=== PATIENT | female | born 1945 | race Caucasian/White ===

== ENCOUNTER → 2016-08-25 | Outpatient (CLI) | payer OTHER, MEDICARE | LOC: BHLMT 09:15 | PROVIDERS: ATTEND Internal Medicine Interventional Cardiology | DX: G45.9 Transient cerebral ischemic attack, unspecified (principal) | CPT/HCPCS: 93306-PO; 93880-PO ==

== ENCOUNTER → 2016-08-26 | Outpatient (CLI) | payer OTHER, MEDICARE | LOC: FIMAGING 15:57 | PROVIDERS: ATTEND Internal Medicine | DX: R47.01 Aphasia (principal) ==

== ENCOUNTER → 2016-09-16 | Outpatient (CLI) | payer OTHER, MEDICARE | LOC: BHFA 14:30 | PROVIDERS: ATTEND Internal Medicine Cardiovascular Disease | DX: R06.00 Dyspnea, unspecified (principal) ==

== ENCOUNTER → 2016-09-21 | Outpatient (CLI) | payer OTHER, MEDICARE | LOC: BHFA 10:30 | PROVIDERS: ATTEND Internal Medicine Cardiovascular Disease | DX: R42 Dizziness and giddiness (principal) ==

== ENCOUNTER 2016-10-20 13:11 | Day surgery (SDC) | payer OTHER, MEDICARE ==
[2016-10-20] MEDS ORDERED: NS 1,000 ML IV ONE ×2 (13:15)
[2016-10-20] MEDS ORDERED: ASPIRIN EC 325 MG TAB PO ONE ×2 (13:15→13:45)
[2016-10-20] MEDS ORDERED: MIDAZOLAM 2 MG/2 ML VIAL IVP ONE (13:15)
[2016-10-20] MEDS ORDERED: BENZOCAINE UNIT DOSE SPRAY HURRICAINE MM ONE (13:15)
[2016-10-20] MEDS ORDERED: fentaNYL 100 MCG/2 ML INJ IVP ONE (13:15)
[2016-10-20] MEDS ORDERED: DIAZEPAM 5 MG TAB PO ONE (13:15)
--- NOTE | 2016-10-20 13:41 | CPEKG ---
Heart Rate: 92 RR Interval: 652 P-R Interval: 173 QRSD Interval: 90 QT Interval: 380 QTC Interval: 471 P [place]: 49 QRS [place]: 55 T Wave [place]: 19 EKG Severity - ABNORMAL ECG - EKG Impression: SINUS RHYTHM EKG Impression: CONSIDER LEFT VENTRICULAR HYPERTROPHY EKG Impression: ST DEPRESSION, CONSIDER ISCHEMIA, ANT-LAT LDS EKG Impression: MODERATE ARTIFACT PRECLUDS ABILITY TO CLEARLY READ THIS STUDY. POSSIBLE EKG Impression: INFEROLATERAL ST/T WAVE CHANGES NOTED. Electronically Signed By: Ap Amor 21-Oct-2016 17:22:51
[2016-10-20] MEDS ORDERED: MIDAZOLAM 2 MG/2 ML VIAL ONE ×2 (13:44→14:31)
[2016-10-20] MEDS ORDERED: fentaNYL 100 MCG/2 ML INJ ONE ×2 (13:45→14:31)
[2016-10-20] MEDS ORDERED: DIAZEPAM 5 MG TAB ONE (13:45)
[2016-10-20] MEDS ORDERED: FAMOTIDINE 20 MG TAB ONE (13:45)
[2016-10-20] MEDS ORDERED: diphenhydrAMINE 25 MG CAP PO ONE (13:45)
[2016-10-20 13:53] LABS: % IMMATURE GRANULYOCYTES 0.3 % (0.0-1.1); ABSOLUTE IMMATURE GRANULOCYTES 0.02 10^3/uL (0.00-0.10); ADD DIFF? NO; ADD MORPH? NO; ADD SCAN? NO; ATYPICAL LYMPHOCYTE FLAG 10 (0-99); FRAGMENT RBC FLAG 0 (0-99); HEMATOCRIT 43.2 % (38.0-47.0); HEMOGLOBIN 14.5 g/dL (12.6-16.3); LEFT SHIFT FLG 0 (0-99); LIPEMIA HEMOLYSIS FLAG 80 (0-99); MEAN CELL HEMOGLOBIN 30.1 pg (27.9-34.1); MEAN CELL HEMOGLOBIN CONCENTR. 33.6 g/dL (32.4-36.7); MEAN CELL VOLUME 89.6 fL (81.5-99.8); MEAN PLATELET VOLUME 10.6 fL (8.7-11.7); PLATELET CLUMPS FLAG 0 (0-99); PLATELET COUNT 318 10^3/uL (150-400); RED BLOOD CELL COUNT 4.82 10^6/uL (4.18-5.33); RED CELL DISTRIBUTION WIDTH 12.7 % (11.5-15.2)
[2016-10-20 13:59] LABS: INR 0.94 (0.83-1.16); PROTIME(PATIENT) 12.5 SEC (12.0-15.0)
[2016-10-20 14:15] LABS: ANION GAP 14 mEq/L (8-16); CALCIUM 10.1 mg/dL (8.5-10.4); CARBON DIOXIDE 27 mEq/l (22-31); CHLORIDE 99 mEq/L (97-110); CHOLESTEROL 200 mg/dL (140-220); CREATININE 0.7 mg/dL (0.6-1.0); GLOMERULAR FILTRATION RATE > 60; GLUCOSE 102 mg/dL (70-100); MAGNESIUM 1.9 mg/dL (1.6-2.3); POTASSIUM 3.4 mEq/L (3.5-5.2); SODIUM 140 mEq/L (134-144); TRIGLYCERIDE 58 mg/dL (35-135); VERY LOW DENSITY LIPOPROTEINS 11 mg/dL (8-25)
[2016-10-20] MEDS ORDERED: LIDOCAINE 1% 30 ML SDV ONE (14:31)
[2016-10-20] MEDS ORDERED: IOPAMIDOL (ISOVUE 370) 100 ML BTL IV ONE (14:36)
[2016-10-20 14:42] LABS: CHOLESTEROL/HDL RATIO 1.54 RATIO (1.00-4.44); HIGH DENSITY LIPOPROTEIN 130 mg/dL (40-85); LOW DENSITY LIPOPROTEIN 59 mg/dL (80-100)
[2016-10-20 14:43] LABS: LDL/HDL RATIO 0.45 RATIO (1.00-3.22); NON-HIGH DENSITY LIPOPROTEIN 70 mg/dL (90-129)
--- NOTE | 2016-10-20 16:51 | PDDXCAT ---
Diagnostic Cath Note - . Date: 10/20/16 Alteration Worker: Donny Indication: other (Valvular Heart Disease) - Procedure Access: right groin Procedure: left heart catheterization, coronary angiography, left ventriculogram , right heart catheterization, other (Aortagram) - Materials Left Heart Cath materials: standard multipack (JL4, JR4, pigtail) Right Heart Cath size: 7F Right Heart Cath materials: PWP catheter - Findings-Left Heart Catheterization LM: Normal. LAD: Angiographically normal. LCX: Dominant; angiographically normal. RCA: Non-dominant; angiographically normal. EDP: 18 mmHg LVEF: 50%; Aortagram demonstrates normal caliber aorta with mild angiographic AR (moderate to severe by echo). Wall motion: Noormal - Findings-Right Heart Catheterization RA: 8 mmHg RV: 28/6 mmHg PA: 30/12/20 mmHg O2 sat 81.4% PAOP: 14 mmHg AO: 140/68/100 mmHg O2 sat 93.8% CO: 8.99 L/min CI: 5.11 L/min/sq mtr Complications: None Estimated blood loss: <50ml Closure method: Angioseal Assessment: 1) Low normal LV systolic function. 2) Angiographically normal coronary arteries. 3) Normal right heart pressures.
--- NOTE | 2016-10-22 15:56 | ECHO ---
[id number] + + [address] : : [facility] [address] : : [phone] + + Transesophageal Echocardiographic Report + ----+ :Name: SHEREE JAMES MStudy Date: 10/20/2016 02:28 PM : : Hospital Admission Number: [id number] Location: C: :: 1945 Gender: Female : :Age: 71 yrs Race: WH : :Reason For Study: Eval LV Fx : :History: Pre Cath, Known AI : + ----+ Left Ventricle The left ventricular ejection fraction is normal. Right Ventricle The right ventricular systolic function is normal. Atria Injection of contrast documented an interatrial shunt. The interatrial septum is intact with no evidence for an atrial septal defect. Mitral Valve There is no mitral valve stenosis. There is moderate mitral regurgitation. The MR volume by PISA from previous surface echo ERO/ R Vol .11 cm2/16ml. Tricuspid Valve There is mild tricuspid regurgitation. Aortic Valve Moderate to severe aortic regurgitation. The AI regurgitant fraction 21%. Pulmonic Valve The pulmonic valve is normal in structure and function. There is no pulmonic valvular regurgitation. Vessels Mild atherosclerotic plaque(s) in the descending aorta. Conclusion A 2D transesophageal echocardiogram with color flow Doppler was performed. The left ventricular ejection fraction is normal. Injection of contrast documented an interatrial shunt. The interatrial septum is intact with no evidence for an atrial septal defect. There is moderate mitral regurgitation. The MR volume by PISA from previous surface echo ERO/ R Vol .11 cm2/16ml Moderate to severe aortic regurgitation. The AI regurgitant fraction 21% There is mild tricuspid regurgitation. Mild atherosclerotic plaque(s) in the descending aorta. Final Reading Physician: Felicia Lester signed on 10/22/2016 03:55 PM Ordering Physician: Ham Hines Performed By: Ham Hines MD
== END 2016-10-20 19:46 | disposition home or self-care (01) ==
LOC: FCATH 13:11
PROVIDERS: ATTEND Internal Medicine Interventional Cardiology
PROC: B2111ZZ Fluoroscopy of Multiple Coronary Arteries using Low Osmolar Contrast (ICD-10-PCS; principal; 2016-10-20)
PROC: B2151ZZ Fluoroscopy of Left Heart using Low Osmolar Contrast (ICD-10-PCS; principal; 2016-10-20)
PROC: 4A023N8 Measurement of Cardiac Sampling and Pressure, Bilateral, Percutaneous Approach (ICD-10-PCS; principal; 2016-10-20)
PROC: 3E073KZ Introduction of Other Diagnostic Substance into Coronary Artery, Percutaneous Approach (ICD-10-PCS; principal; 2016-10-20)
PROC: B246ZZ4 Ultrasonography of Right and Left Heart, Transesophageal (ICD-10-PCS; principal; 2016-10-20)
DX: I08.0 Rheumatic disorders of both mitral and aortic valves (principal)
CPT/HCPCS: C1760; J1644; J2250; J3010; Q9967

== ENCOUNTER 2016-11-11 07:06 | Inpatient (IN) | payer OTHER, MEDICARE ==
[~2016-11-11 07:06] MED LIST: ADENOSINE 6 MG/2 ML VIAL ONE; ALBUMIN 5% 250 ML BOTTLE IV ONE; AMINOCAPROIC ACID 5 GM/20 ML VIAL IV ONE; AMINOCAPROIC ACID 5 GM/20 ML VIAL ONE; AMIODARONE HCL 150 MG/3 ML VIAL ONE; CALCIUM CHLORIDE 1 GM/10 ML INJ ONE; CHLORHEXIDINE GLUC HIBICLENS 118 ML BTL TP SCH; CITRATE DEXTROSE SOLN 500 ML BAG MISC ONE; CITRATE DEXTROSE SOLN 500 ML BAG ONE; DOPamine/DEXTROSE/250 ML BAG IV ONE; HEPARIN 10,000 UNIT/10 ML MDV ONE; INSULIN REGULAR HUMAN 100 UNIT in NS 100 ML IV ONE; LIDOCAINE 1% 5 ML SDV ID PRN; LIDOCAINE 2% 100 MG/5 ML SYR ONE; LIDOCAINE 2% 5 ML SDV ONE; MAGNESIUM SULFATE 1 GM/2 ML VIAL ONE; MANNITOL 25% 12.5 GM/50 ML VIAL IV ONE; MILRINONE/DEXTROSE/100 ML BAG IV ONE; MUPIROCIN 2% 22 GM OINT NS ONE; NA BICARBONATE 50 MEQ/50 ML VIAL ONE; NOREPINEPHRINE BITARTRATE 16 MG in NS 250 ML IV ONE; NS 1,000 ML IV ONE; PHENYLEPHRINE 10 MG/ML SDV ONE; PHENYLEPHRINE HCL 50 MG in NS 250 ML IV ONE; POTASSIUM Cl (KCl) 20 MEQ/50 ML BAG IV ONE; PROPOFOL 200 MG/20 ML VIAL ONE; PROTAMINE SULFATE 50 MG/5 ML VIAL IVP ONE; ROCURONIUM 100 MG/10 ML VIAL ONE; SODIUM BICARBONATE 20 MEQ, LIDOCAINE 1% 10 ML in NORMOSOL-R 1,000 ML MISC ONE; ceFAZolin 1 GM VIAL ONE; ceFAZolin 2 GM/DEXTROSE 100 ML IV ONE; methylPREDNISolone SOD SUCC 1 GM/8 ML VIAL ONE; niCARdipine/NACL 200 ML IV SCH; niCARdipine/NACL/200 ML BAG IV ONE
[2016-11-11] MEDS ORDERED: MUPIROCIN 2% 22 GM OINT ONE (08:07)
[2016-11-11] MEDS ORDERED: MINERAL OIL 10 ML VIAL TP ONE (08:13)
[2016-11-11] MEDS ORDERED: LIDOCAINE 1% 5 ML SDV ID PRN (08:21)
[2016-11-11] MEDS ORDERED: LR 1,000 ML IV ONE (08:21)
[2016-11-11] MEDS ORDERED: fentaNYL 250 MCG/5 ML INJ ONE ×2 (08:35→08:36)
[2016-11-11] MEDS ORDERED: MIDAZOLAM 2 MG/2 ML VIAL ONE ×2 (08:41→10:42)
[2016-11-11] MEDS ORDERED: fentaNYL 100 MCG/2 ML INJ ONE (10:43)
[2016-11-11] MEDS ORDERED: SUGAMMADEX SODIUM 200 MG/2 ML VIAL IVP ONE ×2 (12:32→18:05)
[2016-11-11] MEDS ORDERED: PANTOPRAZOLE SODIUM 40 MG in NS 100 ML IV ONE (12:53)
[2016-11-11] MEDS ORDERED: SODIUM CL NASAL 45 ML BTL EACHNARE PRN (12:53)
[2016-11-11] MEDS ORDERED: D50W 25 GM/50 ML SYR IVP PRN (12:53)
[2016-11-11] MEDS ORDERED: ACETAMINOPHEN 650 MG SUPP PR PRN (12:53)
[2016-11-11] MEDS ORDERED: MAGNESIUM HYDROXIDE 30 ML UDCUP PO PRN (12:53)
[2016-11-11] MEDS ORDERED: LACTULOSE 20 GM/30 ML UDCUP PO PRN (12:53)
[2016-11-11] MEDS ORDERED: BISACODYL 10 MG SUPP PR PRN (12:53)
[2016-11-11] MEDS ORDERED: MAGNESIUM SULF 2 GM/WATER 50 ML BAG IV ONE ×2 (12:53→12:55)
[2016-11-11] MEDS ORDERED: ONDANSETRON DISINTEGRATING 4 MG TAB PO PRN (12:53)
[2016-11-11] MEDS ORDERED: CEPACOL LOZENGE PO PRN (12:53)
[2016-11-11] MEDS ORDERED: ACETAMINOPHEN 325 MG TAB PO PRN (12:53)
[2016-11-11] MEDS ORDERED: fentaNYL 100 MCG/2 ML INJ IVP PRN (12:53)
[2016-11-11] MEDS ORDERED: MAGNESIUM SULF 2 GM/WATER 50 ML IV ONE (12:53)
[2016-11-11] MEDS ORDERED: MEPERIDINE 25 MG/ML SYR IVP PRN (12:53)
[2016-11-11] MEDS ORDERED: INSULIN REGULAR HUMAN 100 UNIT in NS 100 ML IV SCH (13:00)
[2016-11-11] MEDS ORDERED: NS 1,000 ML IV SCH (13:00)
--- NOTE | 2016-11-11 14:00 | CPEKG ---
Heart Rate: 114 RR Interval: 526 P-R Interval: 96 QRSD Interval: 110 QT Interval: 376 QTC Interval: 518 P [place]: 0 QRS [place]: -41 T Wave [place]: 152 EKG Severity - ABNORMAL ECG - EKG Impression: SINUS TACHYCARDIA EKG Impression: NONSPECIFIC IVCD WITH LAD Electronically Signed By: Issac Odell 12-Nov-2016 07:17:42
--- NOTE | 2016-11-11 14:21 | POSTOPPROG ---
Post Op Note Date of Operation: 11/11/16 Surgeon: Ham Rollins [employer] Operator: Augustina Anesthesiologist: Brian Anesthesia: GET(General Endotracheal) Pre-op Diagnosis: AI, MR Procedure: AVR #19 magna, MVR #27 magna, atriclip CAIN Inf/Abcess present in the surg proc area at time of surgery?: No EBL: 100-500 Drains: Other (2 blakes)
[2016-11-11] MEDS: ceFAZolin 2 GM/DEXTROSE 100 ML IV SCH ×2 (14:41→22:11)
[2016-11-11] MEDS ORDERED: epHEDrine SULFATE 10 MG/ML SYR ONE ×3 (14:54)
[2016-11-11] MEDS: POTASSIUM Cl (KCl) 50 ML IV PRN ×4 (14:58→19:55)
[2016-11-11] MEDS ORDERED: niCARdipine/NACL 200 ML IV SCH (15:00)
--- NOTE | 2016-11-11 15:18 | GOP ---
[f rep st] OPERATIVE REPORT DATE OF OPERATION: 11/11/2016 SURGEON: Ham Rollins DO [employer] MECHANIC: Miguel Jackman PA-C. ANESTHESIOLOGIST: Dr. Torres. PREOPERATIVE DIAGNOSIS: 1. Aortic insufficiency. 2. Mitral insufficiency. POSTOPERATIVE DIAGNOSIS: 1. Aortic insufficiency. 2. Mitral insufficiency. PROCEDURE PERFORMED: 1. Aortic valve replacement with a #19 Magna bioprosthesis. 2. Mitral valve chordal-sparing replacement with a #27 Magna bioprosthesis. 3. AtriClip to the left atrial appendage. 4. Closure of patent foramen ovale. FINDINGS: Patient was noted to have moderate AI with moderate to severe mitral insufficiency, and h ad become quite symptomatic. She was referred for surgical valve repair and replacement. DESCRIPTION OF PROCEDURE: She was consented for surgery, brought to the operating room, intubated, monitoring lines were placed. She was prepped and draped in sterile classical manner. Some conside ration for Mccracken-Maze IV was also part of the preoperative discussion, however, 2 separate Holters terrence led to reveal any evidence of atrial fibrillation, although she does have a history of SVT for which she carries a "pill in a pocket". After reviewing this in the department, we did not believe it warranted a Maze procedure, nor could we justify it and for that reason, none was offered. Transesophageal echo revealed multiple jets of regurgitation, more consistent with severe on my revi ew with an enlarged left atrium. The AI was moderate. After a time-out, sternotomy was performed. She was heparinized and cannulated with bicaval cannulas, cardiopulmonary bypass was begun. A card ioplegic arrest was attained with antegrade cardioplegia, retrograde cardioplegia, topical hypotherm ia and systemic cooling. Initially, we opened the left atrium through the right superior pulmonary vein. We identified the P FO and that was oversewn with a continuous running 4-0 Prolene. We then proceeded with inspecting t he valve, it appeared to be somewhat fibrotic and had fibrosed chords, particularly the posterolater al papillary muscle was fibrosed. There did not appear to be any chordal elongation. I placed alex loplasty sutures and felt that adequate catholic of valve shape, which had somewhat dilated poste riorly, would correct. There was no true cleft, although most the liquid that I could find with dis tention was at the cleft of P2, P3. This was closed as part of the procedure. A 30 ring was placed and with distention of the ventricle, we still had persistent significant regurgitation at that sania e site. I looked at doing some sort of chordal transfer or reconstruction chordae but in fact, ther e was good surface coaptation and I believe it had more to do with the fibrous nature of the leaflet and its inability to mold to shape. Because of her concerns with shortness of breath, I decided th at a repair would likely be unsuccessful, particularly as I had placed an aortic valve prosthesis, c oming back on and trying to do a re-repair or replacement, would be very difficult. For that reason , I replaced the valve with a 27 mm Magna valve with interrupted 2-0 Tycron pledgeted mattress sutur es without difficulty. The left atrium was closed with a sump across the mitral valve. We then exposed the aortic valve in the standard fashion. It was soft but thickened and retracted a t the margins. It was excised, it was a very small anulus in a very small lady. We placed a 19 mm supra-annular Magna valve with interrupted 2-0 Tycron pledgeted mattress sutures without difficulty. The aortotomy was closed in a 2-layer fashion. The cross-clamp was then removed after an AtriClip was placed across the base of the left atrial appendage. The patient was kept in Trendelenburg until no further air was identified. Then, she was easily wea yuly from bypass. The heparin was reversed with protamine. The cannula was removed and oversewn. T wo ventricular pacing wires, 2 mediastinal drains were placed. The thymic fat and pericardium were closed. Chest was closed in standard fashion. The patient was returned to ICU in stable condition. /[id number]/MODL
[2016-11-11 15:30] LABS: BICARBONATE 21 mEq/L (22-26); MEASURED OXYGEN SATURATION 92 % (92-95); PCO2 39 mmHg (34-38); PO2 65 mmHg (65-75); TCO2 23 mEq/L (23-27)
[2016-11-11] MEDS: KETOROLAC 15 MG/1 ML SDV IVP PRN ×2 (15:36→22:11)
[2016-11-11] MEDS: ALBUMIN 5% 250 ML IV PRN ×2 (17:00→20:08)
[2016-11-11] MEDS: ONDANSETRON 4 MG/2 ML VIAL IVP PRN (18:26)
[2016-11-11] MEDS: METOCLOPRAMIDE 10 MG/2 ML VIAL IVP PRN (18:26)
[2016-11-11] MEDS ORDERED: NOREPINEPHRINE/NS 500 ML IV SCH (21:30)
[2016-11-11] MEDS: MUPIROCIN 2% 22 GM OINT NS SCH (21:44)
[2016-11-11] MEDS ORDERED: NOREPINEPHRINE BITARTRATE 16 MG in NS 250 ML IV SCH (22:00)
[2016-11-11] MEDS: HYDROCODONE/APAP 5/325 TAB PO PRN (23:20)
[2016-11-11 23:45] LABS: HEMATOCRIT 30.2 % (38.0-47.0); HEMOGLOBIN 10.3 g/dL (12.6-16.3); MEAN CELL HEMOGLOBIN 30.3 pg (27.9-34.1); MEAN CELL HEMOGLOBIN CONCENTR. 34.1 g/dL (32.4-36.7); MEAN CELL VOLUME 88.8 fL (81.5-99.8); RED BLOOD CELL COUNT 3.4 10^6/uL (4.18-5.33); RED CELL DISTRIBUTION WIDTH 13.9 % (11.5-15.2)
[2016-11-12] MEDS: POTASSIUM Cl (KCl) 50 ML IV PRN (01:30)
[2016-11-12 05:21] LABS: % IMMATURE GRANULYOCYTES 0.5 % (0.0-1.1); ABSOLUTE IMMATURE GRANULOCYTES 0.06 10^3/uL (0.00-0.10); ADD DIFF? NO; ADD MORPH? NO; ADD SCAN? NO; ATYPICAL LYMPHOCYTE FLAG 0 (0-99); FRAGMENT RBC FLAG 0 (0-99); HEMATOCRIT 27.9 % (38.0-47.0); HEMOGLOBIN 9.6 g/dL (12.6-16.3); LEFT SHIFT FLG 10 (0-99); LIPEMIA HEMOLYSIS FLAG 90 (0-99); MEAN CELL HEMOGLOBIN 30.9 pg (27.9-34.1); MEAN CELL HEMOGLOBIN CONCENTR. 34.4 g/dL (32.4-36.7); MEAN CELL VOLUME 89.7 fL (81.5-99.8); MEAN PLATELET VOLUME 10.6 fL (8.7-11.7); PLATELET CLUMPS FLAG 0 (0-99); PLATELET COUNT 104 10^3/uL (150-400); RED BLOOD CELL COUNT 3.11 10^6/uL (4.18-5.33); RED CELL DISTRIBUTION WIDTH 14.5 % (11.5-15.2)
[2016-11-12 05:36] LABS: ANION GAP 8 mEq/L (8-16); CALCIUM 8.1 mg/dL (8.5-10.4); CARBON DIOXIDE 24 mEq/l (22-31); CHLORIDE 111 mEq/L (97-110); CREATININE 0.7 mg/dL (0.6-1.0); GLOMERULAR FILTRATION RATE > 60; GLUCOSE 107 mg/dL (70-100); POTASSIUM 4.9 mEq/L (3.5-5.2); SODIUM 143 mEq/L (134-144)
[2016-11-12] MEDS: HYDROCODONE/APAP 5/325 TAB PO PRN ×3 (06:25→18:59)
[2016-11-12] MEDS: HEPARIN 5,000 UNIT/0.5 ML SYR SC SCH ×3 (06:25→21:41)
[2016-11-12] MEDS: ceFAZolin 2 GM/DEXTROSE 100 ML IV SCH ×3 (06:25→21:42)
[2016-11-12] MEDS: ONDANSETRON 4 MG/2 ML VIAL IVP PRN ×3 (06:53→23:23)
--- NOTE | 2016-11-12 07:54 | SOAPPROG ---
SOAP Progress Note Assessment/Plan: POD#1 AVR #19 Magna bioprosthesis, MVR #27 Magna bioprosthesis with chordal sparing, PFO closure, AtriClip CAIN Moderate AI s/p AVR #19 Magna bioprosthesis, severe MR s/p MVR #27 Magna bioprosthesis with chordal sparing - weaned from CPB with preserved normal LV function without the need for inotropic, pressor, or pacing support. Extubated in the ICU. Levophed and 1U PRBC administered for hypotension/slow venous ooze. - BB when appropriate - ASA/Coumadin goal 2-3 x 3 months for valve thromboprophylaxis - AL out, continue CTs to suction while ooze continues - PT for ambulation Patent PFO s/p closure - Coumadin as per MVR for thromboprophylaxis Subjective: Feels well. Denies SOB, CP. Objective: Vital Signs Temp Pulse Resp BP Pulse Ox 38.1 C 92 15 94/57 L 98 11/12/16 05:00 11/12/16 07:00 11/12/16 07:00 11/12/16 07:00 11/12/16 07:00 Laboratory Results 11/12/16 05:05 11/12/16 05:05 11/11/16 11/12/16 11/13/16 05:59 05:59 05:59 Intake Total 2472 Output Total 2308 Balance 164 Physical Exam - Physical Exam General Appearance: WD/WN, alert, no apparent distress EENT: normal ENT inspection Neck: normal inspection Respiratory: No respiratory distress Cardiac/Chest: regular rate, rhythm Abdomen: non-tender, soft, No distended Skin: normal color, warm/dry Extremities: No pedal edema Neuro/Psych: no motor/sensory deficits, alert, normal mood/affect, oriented x 3 ICD10 Worksheet Patient Problems: Problems Problem Status Onset Acute blood loss anemia Acute S/P aortic valve replacement with bioprosthetic valve Acute Status post mitral valve replacement with bioprosthetic valve Acute
[2016-11-12] MEDS: MUPIROCIN 2% 22 GM OINT NS SCH ×2 (08:18→23:53)
[2016-11-12] MEDS: PANTOPRAZOLE SODIUM 40 MG TAB PO SCH (08:18)
[2016-11-12] MEDS: ASPIRIN EC 81 MG TAB PO SCH (08:18)
[2016-11-12] MEDS ORDERED: TEARS/DEXTRAN 70/HYPROMELLOSE 15 ML OPHT.BTL EACHEYE PRN (09:00)
[2016-11-12 10:01] LABS: HEMATOCRIT 31.5 % (38.0-47.0); HEMOGLOBIN 10.6 g/dL (12.6-16.3)
[2016-11-12 10:15] LABS: POTASSIUM 4.8 mEq/L (3.5-5.2)
[2016-11-12] MEDS ORDERED: traMADol 50 MG TAB PO PRN (14:01)
[2016-11-12 14:35] LABS: HEMATOCRIT 31.5 % (38.0-47.0); HEMOGLOBIN 10.8 g/dL (12.6-16.3)
[2016-11-12 14:45] LABS: POTASSIUM 4.6 mEq/L (3.5-5.2)
[2016-11-12] MEDS: SENNOSIDES/DOCUSATE SODIUM TAB PO SCH (21:41)
[2016-11-13] MEDS: METOCLOPRAMIDE 10 MG/2 ML VIAL IVP PRN (01:11)
[2016-11-13 04:05] LABS: % IMMATURE GRANULYOCYTES 0.7 % (0.0-1.1); ABSOLUTE IMMATURE GRANULOCYTES 0.12 10^3/uL (0.00-0.10); ADD DIFF? NO; ADD MORPH? NO; ADD SCAN? NO; ATYPICAL LYMPHOCYTE FLAG 0 (0-99); FRAGMENT RBC FLAG 0 (0-99); HEMATOCRIT 30.4 % (38.0-47.0); HEMOGLOBIN 10.1 g/dL (12.6-16.3); LEFT SHIFT FLG 0 (0-99); LIPEMIA HEMOLYSIS FLAG 80 (0-99); MEAN CELL HEMOGLOBIN 29.8 pg (27.9-34.1); MEAN CELL HEMOGLOBIN CONCENTR. 33.2 g/dL (32.4-36.7); MEAN CELL VOLUME 89.7 fL (81.5-99.8); MEAN PLATELET VOLUME 11.6 fL (8.7-11.7); PLATELET CLUMPS FLAG 0 (0-99); PLATELET COUNT 85 10^3/uL (150-400); RED BLOOD CELL COUNT 3.39 10^6/uL (4.18-5.33); RED CELL DISTRIBUTION WIDTH 15.1 % (11.5-15.2)
[2016-11-13 04:16] LABS: INR 1.45 (0.83-1.16); PROTIME(PATIENT) 17.6 SEC (12.0-15.0)
[2016-11-13 04:20] LABS: ANION GAP 6 mEq/L (8-16); CALCIUM 8.6 mg/dL (8.5-10.4); CARBON DIOXIDE 25 mEq/l (22-31); CHLORIDE 107 mEq/L (97-110); CREATININE 0.7 mg/dL (0.6-1.0); GLOMERULAR FILTRATION RATE > 60; GLUCOSE 161 mg/dL (70-100); SODIUM 138 mEq/L (134-144)
[2016-11-13] MEDS: HYDROCODONE/APAP 5/325 TAB PO PRN (06:05)
[2016-11-13] MEDS ORDERED: FUROSEMIDE 40 MG/4 ML VIAL IVP ONE (06:59)
[2016-11-13] MEDS ORDERED: AMIODARONE HCL 100 ML IV ONE (07:18)
[2016-11-13] MEDS ORDERED: AMIODARONE HCL 200 ML IV ONE (07:18)
[2016-11-13] MEDS: HEPARIN 5,000 UNIT/0.5 ML SYR SC SCH (07:44)
--- NOTE | 2016-11-13 08:00 | SOAPPROG ---
SOAP Progress Note Assessment/Plan: Assessment: POD#2 AVR #19 Magna bioprosthesis, chordal sparing MVR #27 Magna bioprosthesis, closure PFO, prophylactic AtriClip ligation CAIN Sx multi valvular insufficiency - s/p tissue AVR and MVR. Antithrombotic prophylaxis with coumadin x 3 months. Chronic dCHF, class III - Preop LVEDP 18. Extubated without incident. No sig volume overload. Transient BP support with colloid and levophed. Stable renal fx. Care with preload. Incidental PFO - Oversewn. Postop AF - This am, w RVR. No hypotension. Started on amio per protocol. Adjunctive rate control w BB as allowed by BP. [id number] score of 3. Antithrombotic prophylaxis with Coumadin as per AVR/MVR. Acute expected blood loss anemia with thrombocytopenia and mild coagulopathy - Stable s/p 2u PRBC. Remains mildly auto-anticoagulated and thrombocytopenic. Care with coumadin dosing. Plan: Lasix 40 mg IV x 1. IV amiodarone per protocol. Cont metoprolol 12.5 mg BID. Inc tonight's dose if sufficient BP. Start Coumadin. 2.5 mg today. Remove Vwire and chest tubes later today. Baseline postop echo on Tue. Inc activity as tolerated. Dispo - Likely home on Tue or Tue. 11/13/16 07:56 Subjective: Hanging in there. Lousy sleep on her back. Aware of palpitations. No dizziness or SOB. Adequate analgesia. Objective: Vital Signs Temp Pulse Resp BP Pulse Ox 36.3 C 93 17 157/78 H 95 11/12/16 23:56 11/13/16 03:23 11/13/16 03:23 11/13/16 03:23 11/13/16 03:23 Laboratory Results 11/13/16 03:55 11/13/16 03:55 11/12/16 11/13/16 11/14/16 05:59 05:59 05:59 Intake Total 2472 955 Output Total 2308 1160 Balance 164 -205 PT 17.6 SEC (12.0-15.0) H 11/13/16 03:55 INR 1.45 (0.83-1.16) H 11/13/16 03:55 Hypertensive overnoc. Rapid AF this am. Started on amio per protocol with conversion to SR shortly after bolus. Minimal suppl O2 req. CTOP at removal criteria. Positive fluid balance. +6kg overall. Platelet yet to plateau. INR mildly elev. Likely reflects some hepatic congestion. Physical Exam - Physical Exam General Appearance: alert, no apparent distress Respiratory: lungs clear (grossly), other (blakes x 2 to bulb suction, thin serosang drainage) Cardiac/Chest: irregularly irregular, other (Sternum grossly stable. Sternotomy CDI. Vwire intact.) Abdomen: non-tender, soft Skin: warm/dry Extremities: swelling (1+ UEs, trace LEs) ICD10 Worksheet Patient Problems: Problems Problem Status Onset Acute blood loss anemia Acute Mitral and aortic regurgitation Acute Postoperative atrial fibrillation Acute S/P aortic valve replacement with bioprosthetic valve Acute Status post mitral valve replacement with bioprosthetic valve Acute
[2016-11-13] MEDS: PANTOPRAZOLE SODIUM 40 MG TAB PO SCH (08:12)
[2016-11-13] MEDS: ASPIRIN EC 81 MG TAB PO SCH (08:12)
[2016-11-13] MEDS: CALCIUM CARBONATE 500 MG TAB PO SCH ×2 (08:12→20:23)
[2016-11-13] MEDS: MULTIVITAMINS 1 EACH TAB PO SCH (08:13)
[2016-11-13] MEDS: MUPIROCIN 2% 22 GM OINT NS SCH (08:31)
[2016-11-13] MEDS: SENNOSIDES/DOCUSATE SODIUM TAB PO SCH ×2 (08:31→20:30)
[2016-11-13] MEDS ORDERED: METOPROLOL TARTRATE 25 MG TAB PO SCH (09:00)
[2016-11-13] MEDS: ONDANSETRON 4 MG/2 ML VIAL IVP PRN (11:29)
[2016-11-13] MEDS ORDERED: AMIODARONE HCL 540 MG in D5W 300 ML IV ONE (14:30)
[2016-11-13] MEDS ORDERED: WARFARIN SODIUM 2.5 MG TAB PO ONE (16:00)
[2016-11-13] MEDS: METOPROLOL TARTRATE 25 MG TAB PO SCH (20:23)
[2016-11-14 06:06] LABS: INR 1.64 (0.83-1.16); PROTIME(PATIENT) 19.5 SEC (12.0-15.0)
[2016-11-14 06:28] LABS: POTASSIUM 4.6 mEq/L (3.5-5.2)
--- NOTE | 2016-11-14 08:23 | SOAPPROG ---
SOAP Progress Note Assessment/Plan: Assessment: POD#3 AVR #19 Magna bioprosthesis, chordal sparing MVR #27 Magna bioprosthesis, closure PFO, prophylactic AtriClip ligation CAIN Sx multi valvular insufficiency - s/p tissue AVR and MVR. Tubes and wires out. Antithrombotic prophylaxis with coumadin x 3 months. Chronic dCHF, class III - Preop LVEDP 18. Extubated without incident. No sig volume overload. Transient BP support with colloid and levophed. Stable renal fx. Care with preload. Incidental PFO - Oversewn. Postop PAF - Prompt conversion to SR on amio and escalating BB dose. Amio stopped for nausea. [id number] score of 3. Antithrombotic prophylaxis with Coumadin as per AVR/MVR. Acute expected blood loss anemia with thrombocytopenia and mild coagulopathy - Stable s/p 2u PRBC. Care with coumadin dosing. Plan: Stop diuresis. Cont metoprolol 25 mg BID. Consider increase to 37.5 mg tonight. No oral amio. Bowman IV amio bolus for recurrent RVR. Cont Coumadin 2.5 mg daily. Baseline postop echo on Tue. Inc activity as tolerated. Wean O2. Dispo - Anticipate home Tu. 11/14/16 08:20 Subjective: Doing ok. Feels less puffy. Low grade nausea since yest. Not much dinner or breakfast d/t dry heaves. Ok with liquids. Objective: Vital Signs Temp Pulse Resp BP Pulse Ox 36.8 C 83 18 99/79 L 97 11/14/16 07:27 11/14/16 07:27 11/14/16 07:27 11/14/16 07:27 11/14/16 07:27 Laboratory Results 11/13/16 03:55 11/14/16 05:50 11/13/16 11/14/16 11/15/16 05:59 05:59 05:59 Intake Total 955 450 Output Total 1160 400 90 Balance -205 50 -90 PT 19.5 SEC (12.0-15.0) H 11/14/16 05:50 INR 1.64 (0.83-1.16) H 11/14/16 05:50 Holding SR w freq PACs since mid morning yest. SBP borderline low on inc metop. Balanced I/Os. Appropriate INR rise. Physical Exam - Physical Exam General Appearance: alert, no apparent distress Respiratory: lungs clear (improved insp effort), other (Mediastinal blakes x 2 to bulb suction, serosang drainage. Both removed without incident) Cardiac/Chest: regular rate, rhythm, other (Sternum grossly stable. Sternotomy CDI.) Abdomen: normal bowel sounds, non-tender, soft Skin: warm/dry Extremities: other (no visible edema) ICD10 Worksheet Patient Problems: Problems Problem Status Onset Acute blood loss anemia Acute Mitral and aortic regurgitation Acute Postoperative atrial fibrillation Acute S/P aortic valve replacement with bioprosthetic valve Acute Status post mitral valve replacement with bioprosthetic valve Acute
[2016-11-14] MEDS ORDERED: FUROSEMIDE 40 MG TAB PO SCH (09:00)
[2016-11-14] MEDS ORDERED: AMIODARONE HCL 200 MG TAB PO SCH (09:00)
[2016-11-14] MEDS ORDERED: POTASSIUM CL 10 MEQ TAB PO SCH (09:00)
[2016-11-14] MEDS: ONDANSETRON 4 MG/2 ML VIAL IVP PRN (09:30)
[2016-11-14] MEDS: CALCIUM CARBONATE 500 MG TAB PO SCH ×2 (10:24→20:05)
[2016-11-14] MEDS: PANTOPRAZOLE SODIUM 40 MG TAB PO SCH (10:25)
[2016-11-14] MEDS: MULTIVITAMINS 1 EACH TAB PO SCH (10:25)
[2016-11-14] MEDS: METOPROLOL TARTRATE 25 MG TAB PO SCH ×2 (10:25→20:05)
[2016-11-14] MEDS: SENNOSIDES/DOCUSATE SODIUM TAB PO SCH (10:26)
[2016-11-14] MEDS: ASPIRIN EC 81 MG TAB PO SCH (10:26)
[2016-11-14] MEDS: WARFARIN SODIUM 2.5 MG TAB PO SCH (16:00)
[2016-11-14] MEDS ORDERED: SENNOSIDES/DOCUSATE SODIUM TAB PO PRN (21:00)
[2016-11-15 06:36] LABS: HEMATOCRIT 26.5 % (38.0-47.0); HEMOGLOBIN 8.7 g/dL (12.6-16.3); MEAN CELL HEMOGLOBIN 30.1 pg (27.9-34.1); MEAN CELL HEMOGLOBIN CONCENTR. 32.8 g/dL (32.4-36.7); MEAN CELL VOLUME 91.7 fL (81.5-99.8); RED BLOOD CELL COUNT 2.89 10^6/uL (4.18-5.33); RED CELL DISTRIBUTION WIDTH 14.1 % (11.5-15.2)
[2016-11-15 06:40] LABS: INR 3.92 (0.83-1.16); PROTIME(PATIENT) 39.1 SEC (12.0-15.0)
[2016-11-15 07:23] LABS: POTASSIUM 4.4 mEq/L (3.5-5.2)
--- NOTE | 2016-11-15 08:28 | SOAPPROG ---
SOAP Progress Note Assessment/Plan: Assessment: POD#4 AVR #19 Magna bioprosthesis, chordal sparing MVR #27 Magna bioprosthesis, closure PFO, prophylactic AtriClip ligation CAIN Sx multi valvular insufficiency - s/p tissue AVR and MVR. Tubes and wires out. Antithrombotic prophylaxis with coumadin x 3 months. Chronic dCHF, class III - Preop LVEDP 18. Extubated without incident. No sig volume overload. Transient BP support with colloid and levophed. Stable renal fx. Care with preload. Incidental PFO - Oversewn. Postop PAF - Prompt conversion to SR on amio and BB. Amio stopped for nausea. Escalating BB for intermittent AF. [id number] score of 3. Antithrombotic prophylaxis with Coumadin as per AVR/MVR. Acute expected blood loss anemia with thrombocytopenia and mild coagulopathy - Stable s/p 2u PRBC. Care with coumadin dosing. Plan: Inc metoprolol to 37.5 mg BID. Hold ASA for INR > 2.5 No Coumadin today. Baseline postop echo today. Ck CXR for left pl eff. Inc activity as tolerated. Wean O2. Dispo - Anticipate home tomorrow. 11/15/16 08:26 Subjective: Slept great but tired and unambitious today. Appetite sl better and is craving cheese and crackers. Adequate analgesia. Objective: Vital Signs Temp Pulse Resp BP Pulse Ox 36.8 C 94 17 110/62 95 11/15/16 08:00 11/15/16 08:00 11/15/16 08:00 11/15/16 08:00 11/15/16 08:00 Laboratory Results 11/15/16 05:20 11/15/16 05:20 11/14/16 11/15/16 11/16/16 05:59 05:59 05:59 Intake Total 450 750 Output Total 400 740 Balance 50 10 PT 39.1 SEC (12.0-15.0) H D 11/15/16 05:20 INR 3.92 (0.83-1.16) H 11/15/16 05:20 HR 80s-90s with PACs and bursts of AF. No sig dip in BP on inc BB. Min suppl O2. Balanced I/Os. Slow but steady wt loss. +5 kg overall. Rapid rise in INR, likely some hepatic congestion. - Pending Discharge Pending Discharge Within 24 Hours: Yes Pending Discharge Date: 11/16/16 Pending Discharge Time: 11:00 Physical Exam - Physical Exam General Appearance: alert, no apparent distress Respiratory: decreased breath sounds (left base) Cardiac/Chest: regular rate, rhythm, other (Sternum grossly stable. Sternotomy CDI) Abdomen: non-tender, soft Skin: warm/dry Extremities: other (no visible edema) ICD10 Worksheet Patient Problems: Problems Problem Status Onset Acute blood loss anemia Acute Mitral and aortic regurgitation Acute Postoperative atrial fibrillation Acute S/P aortic valve replacement with bioprosthetic valve Acute Status post mitral valve replacement with bioprosthetic valve Acute
[2016-11-15] MEDS: ONDANSETRON 4 MG/2 ML VIAL IVP PRN (09:34)
[2016-11-15] MEDS: PANTOPRAZOLE SODIUM 40 MG TAB PO SCH (09:36)
[2016-11-15] MEDS: METOPROLOL TARTRATE 25 MG TAB PO SCH ×2 (11:07→20:16)
[2016-11-15] MEDS: MULTIVITAMINS 1 EACH TAB PO SCH (11:08)
[2016-11-15] MEDS: CALCIUM CARBONATE 500 MG TAB PO SCH ×2 (11:08→20:16)
[2016-11-15] MEDS: POLYETHYLENE GLYCOL 3350 17 GM PKT PO PRN (11:29)
--- NOTE | 2016-11-15 12:05 | ECHO ---
[id number] [id number] + + [address] : : [place] [address] : : [phone] + + Adult Echocardiographic Report + ----+ :Name: SHEREE JAMES MStudy Date: 11/15/2016 07:51 AM : : Hospital Admission Number: [id number] Location: 209: :: 1945 Gender: Female Height: 68 in : :Age: 71 yrs Race: WH Weight: 152 lb : :Reason For Study: S/P AVR#19,MVR#27 CE magna bovine dee : :valves/PFO closure BSA: 1.8 meters2 : + ----+ MMode/2D Measurements \T\ Calculations LVIDd: 4.6 cm EDV(Teich): LA dimension: LVLd ap4: 6.6 cm 95.9 ml 4.3 cm EDV(MOD-sp4): 42.0 ml LVLs ap4: 5.3 cm ESV(MOD-sp4): 16.0 ml EF(MOD-sp4): 61.9 % SV(MOD-sp4): 26.0 ml Normal Measurement Values: + + :LVIDd (3.5-5.7cm) IVSd (0.6-1.1cm) LVPWd (0.6-1.1cm) Aortic Root (2.0-3.7cm)Left Atrium (1.5-4.0cm): :LV Vol(d) (76-115ml) LV Vol(s) (29-48ml) Ejec Fraction (50-65%)PV Titus (0.6- 1.2m/s) TV Titus (0.4-1.0m/s) : :MV E Titus (0.8-1.0m/s)MV A Titus (0.3-1.0m/s)LVOT Titus (0.7-1.2m/s) Asc Ao Titus ( 0.9-1.8m/s) : + + Doppler Measurements \T\ Calculations MV E max titus: MV V2 mean: Ao mean PG: TR max titus: 192.0 cm/sec 75.0 cm/sec 21.9 mmHg 204.1 cm/sec MV dec time: MV mean PG: Ao V2 mean: TR max P.14 sec 3.0 mmHg 219.3 cm/sec 16.7 mmHg MV V2 VTI: 36.9 cmAo V2 VTI: 59.4 cm RAP systole: 5.0 mmHg RVSP(TR): 21.7 mmHg Left Ventricle The left ventricle is normal in size. There is normal left ventricular wall thickness. Ejection Fraction = 60-65%. Septal motion is consistent with post-operative state. Right Ventricle The right ventricle is normal size. The right ventricular systolic function is normal. Atria The left atrium is moderately dilated. Right atrial size is normal. Mitral Valve There is trace to mild mitral regurgitation. There is a bioprosthetic mitral valve. MV mean PG is 3mmHG. Tricuspid Valve Normal tricuspid valve. There is mild tricuspid regurgitation. Right ventricular systolic pressure is normal. Aortic Valve There is no aortic insufficiency. There is a bioprosthetic aortic valve. AV max PG is 36mmHG. AV mean PG is 22mmHG. Pulmonic Valve The pulmonic valve is not well visualized. Great Vessels The aortic root is normal size. Pericardium/Pleural There is no pericardial effusion. Left pleural effusion. Conclusion A complete two-dimensional transthoracic echocardiogram was performed (2D, M-mode, Doppler and color flow Doppler). Ejection Fraction = 60-65%. Septal motion is consistent with post-operative state. The left atrium is moderately dilated. MV mean PG is 3mmHG. There is trace to mild mitral regurgitation. There is mild tricuspid regurgitation. Right ventricular systolic pressure is normal. There is a bioprosthetic aortic valve. AV max PG is 36mmHG. AV mean PG is 22mmHG. Left pleural effusion. Compared with 10/20/2016, aortic and mitral valves have been replaced. Final Reading Physician: Dr Ju Fleming electronically signed on 11/15/2016 12:03 PM Ordering Physician: Bianca Nance Performed By: Tesha Juarez RDCS
[2016-11-15] MEDS: WARFARIN SODIUM 2.5 MG TAB PO SCH (15:51)
[2016-11-16 06:49] LABS: INR 4.61 (0.83-1.16); PROTIME(PATIENT) 44.5 SEC (12.0-15.0)
[2016-11-16 07:06] LABS: ALANINE AMINOTRANSFERASE 64 IU/L (9-52); ALBUMIN 2.8 g/dL (3.5-5.0); ALKALINE PHOSPHATASE 82 IU/L (38-126); ANION GAP 6 mEq/L (8-16); ASPARTATE AMINOTRANSFERASE 63 IU/L (14-46); CALCIUM 7.9 mg/dL (8.5-10.4); CARBON DIOXIDE 29 mEq/l (22-31); CHLORIDE 97 mEq/L (97-110); CREATININE 0.5 mg/dL (0.6-1.0); GLOMERULAR FILTRATION RATE > 60; GLUCOSE 90 mg/dL (70-100); POTASSIUM 4.1 mEq/L (3.5-5.2); SODIUM 132 mEq/L (134-144); TOTAL PROTEIN 4.9 g/dL (6.3-8.2)
--- NOTE | 2016-11-16 07:54 | SOAPPROG ---
SOAP Progress Note Assessment/Plan: POD#5 AVR #19 Magna bioprosthesis, MVR #27 Magna bioprosthesis with chordal sparing, PFO closure, AtriClip CAIN Moderate AI s/p AVR #19 Magna bioprosthesis, severe MR s/p MVR #27 Magna bioprosthesis with chordal sparing - BB, Coumadin goal 2-3 x 3 months for valve thromboprophylaxis Patent PFO s/p closure - Coumadin as per MVR for thromboprophylaxis Acute blood loss anemia - Stable s/p 2U PRBC Postop PAF - Amio stopped for nausea. Continue BB. [id number] score of 3. Antithrombotic prophylaxis with Coumadin as per MVR. CHF Class III, diastolic - 7 kg above pre-op weight - Continue Lasix BID - Continue BB, ACEi/ARB as allowed by BP Subjective: Feels well. Denies CP/SOB. Surprised regarding her weight. Objective: Vital Signs Temp Pulse Resp BP Pulse Ox 36.4 C 84 17 129/73 H 93 11/16/16 04:59 11/16/16 04:59 11/16/16 04:59 11/16/16 04:59 11/16/16 04:59 Laboratory Results 11/16/16 05:50 11/16/16 05:50 11/15/16 11/16/16 11/17/16 05:59 05:59 05:59 Intake Total 750 1120 Output Total 740 1150 Balance 10 -30 PT 44.5 SEC (12.0-15.0) H 11/16/16 05:50 INR 4.61 (0.83-1.16) H 11/16/16 05:50 Physical Exam - Physical Exam General Appearance: WD/WN, alert, no apparent distress EENT: normal ENT inspection Neck: normal inspection Respiratory: No respiratory distress Cardiac/Chest: regular rate, rhythm Abdomen: non-tender, soft, No distended Skin: normal color, warm/dry Extremities: No pedal edema Neuro/Psych: no motor/sensory deficits, alert, normal mood/affect, oriented x 3 ICD10 Worksheet Patient Problems: Problems Problem Status Onset Acute blood loss anemia Acute Mitral and aortic regurgitation Acute Postoperative atrial fibrillation Acute S/P aortic valve replacement with bioprosthetic valve Acute Status post mitral valve replacement with bioprosthetic valve Acute
[2016-11-16] MEDS: PANTOPRAZOLE SODIUM 40 MG TAB PO SCH (08:02)
[2016-11-16] MEDS: ONDANSETRON 4 MG/2 ML VIAL IVP PRN (08:02)
[2016-11-16] MEDS ORDERED: PHYTONADIONE 2.5 MG/2.5 ML ORAL UDL PO ONE (09:00)
[2016-11-16] MEDS: POLYETHYLENE GLYCOL 3350 17 GM PKT PO PRN (09:26)
[2016-11-16] MEDS: METOPROLOL TARTRATE 25 MG TAB PO SCH ×2 (09:27→19:56)
[2016-11-16] MEDS: MULTIVITAMINS 1 EACH TAB PO SCH (09:28)
[2016-11-16] MEDS: CALCIUM CARBONATE 500 MG TAB PO SCH ×2 (09:28→19:55)
[2016-11-16] MEDS: POTASSIUM CL 20 MEQ TAB PO SCH ×2 (09:31→16:31)
[2016-11-16] MEDS: FUROSEMIDE 40 MG TAB PO SCH ×2 (09:32→16:31)
[2016-11-17 06:15] LABS: HEMATOCRIT 25.7 % (38.0-47.0); HEMOGLOBIN 8.7 g/dL (12.6-16.3); MEAN CELL HEMOGLOBIN 30.2 pg (27.9-34.1); MEAN CELL HEMOGLOBIN CONCENTR. 33.9 g/dL (32.4-36.7); MEAN CELL VOLUME 89.2 fL (81.5-99.8); RED BLOOD CELL COUNT 2.88 10^6/uL (4.18-5.33); RED CELL DISTRIBUTION WIDTH 13.6 % (11.5-15.2)
[2016-11-17 06:21] LABS: INR 1.79 (0.83-1.16); PROTIME(PATIENT) 20.9 SEC (12.0-15.0)
[2016-11-17 06:38] LABS: POTASSIUM 3.9 mEq/L (3.5-5.2)
--- NOTE | 2016-11-17 07:53 | SOAPPROG ---
SOAP Progress Note Assessment/Plan: Assessment: POD#6 AVR #19 Magna bioprosthesis, chordal sparing MVR #27 Magna bioprosthesis, closure PFO, prophylactic AtriClip ligation CAIN Sx multi valvular insufficiency - s/p tissue AVR and MVR. Tubes and wires out. Antithrombotic prophylaxis with coumadin x 3 months. Chronic dCHF, class III - Preop LVEDP 18. Extubated without incident. No sig volume overload. Transient BP support with colloid and levophed. Stable renal fx. Care with preload. Incidental PFO - Oversewn. Postop PAF - Prompt conversion to SR on amio and BB. Amio stopped for nausea. Escalating BB for intermittent AF. [id number] score of 3. Antithrombotic prophylaxis with Coumadin as per AVR/MVR. Acute expected blood loss anemia with thrombocytopenia and mild coagulopathy - Stable s/p 2u PRBC. Platelet recovery noted. H/H > 8/25 maintained. Plan: Cont metoprolol to 37.5 mg BID. Restart ASA. Restart Coumadin @ 2 mg daily. Cont daily diuresis. Dispo - Home today. Instructions re diet, meds, activity, wound care and f/u to be reviewed in presence of . 11/17/16 07:51 Subjective: Doing ok. Light activity well tolerated today. Appetite cont to improve. Minimal incisional discomfort. Objective: Vital Signs Temp Pulse Resp BP Pulse Ox 37.1 C 90 18 120/72 97 11/17/16 07:31 11/17/16 07:31 11/17/16 07:31 11/17/16 07:31 11/17/16 07:31 Laboratory Results 11/17/16 05:50 11/17/16 05:50 11/16/16 11/17/16 11/18/16 05:59 05:59 05:59 Intake Total 1120 1210 Output Total 1150 650 Balance -30 560 PT 20.9 SEC (12.0-15.0) H D 11/17/16 05:50 INR 1.79 (0.83-1.16) H 11/17/16 05:50 Rare PAF with CVR. Adequate BPs. Min O2. RA trial in progress. Improving fluid balance. Plt rebound noted. Supratherapeutic INR corrected s/p vit K. Physical Exam - Physical Exam General Appearance: alert, no apparent distress Respiratory: decreased breath sounds (left base) Cardiac/Chest: regular rate, rhythm, other (Sternum grossly stable. Sternotomy CDI) Abdomen: non-tender, soft Skin: warm/dry Extremities: swelling (trace-1+ dependent) ICD10 Worksheet Patient Problems: Problems Problem Status Onset Acute blood loss anemia Acute Mitral and aortic regurgitation Acute Postoperative atrial fibrillation Acute S/P aortic valve replacement with bioprosthetic valve Acute Status post mitral valve replacement with bioprosthetic valve Acute
[2016-11-17] MEDS: POTASSIUM CL 20 MEQ TAB PO SCH (07:54)
[2016-11-17] MEDS: METOPROLOL TARTRATE 25 MG TAB PO SCH (07:55)
[2016-11-17] MEDS: PANTOPRAZOLE SODIUM 40 MG TAB PO SCH (07:56)
[2016-11-17] MEDS: MULTIVITAMINS 1 EACH TAB PO SCH (07:56)
[2016-11-17] MEDS: CALCIUM CARBONATE 500 MG TAB PO SCH (07:57)
[2016-11-17] MEDS: FUROSEMIDE 40 MG TAB PO SCH (07:57)
[2016-11-17] MEDS: ASPIRIN EC 81 MG TAB PO SCH (09:33)
[2016-11-17 11:51] VITALS: BP 111/64; PULSE 89; RESP 16; TEMP 97.7; O2SAT 94
[2016-11-17] MEDS ORDERED: WARFARIN SODIUM 2 MG TAB PO SCH (16:00)
--- NOTE | 2016-11-17 17:14 | PDDCSUM ---
Discharge Summary Discharge Summary: DATE OF ADMISSION: 11/11/16 DATE OF DISCHARGE: 11/17/16 DISPOSITION: Home, self-care PRINCIPAL ADMISSION DIAGNOSES: 1. Severe aortic and moderate mitral valve insufficiency. 2. Chronic diastolic CHF. 3. Small patent foramen ovale. 4. Paroxysmal atrial tachycardia. PRINCIPAL DISCHARGE DIAGNOSES: 1. Status post aortic valve replacement with a bioprosthesis. 2. Status post mitral valve replacement with a bioprosthesis. 3. Status post oversew of patent foramen ovale. 4. Status post prophylactic AtriClip ligation of the left atrial appendage. 5. Acute expected blood loss anemia with thrombocytopenia and mild coagulopathy. 6. Postoperative paroxysmal atrial fibrillation. HISTORY OF PRESENT ILLNESS: 71 yo female with a lifelong murmur and "pill in pocket" carvedilol (3.125 mg) for bursts of SVT, evaluated for a 3 mo hx of worsening exertional dyspnea and fatigue with episodic lightheadedness and found to have severe AI, moderate MR, LVDD, and a small PFO. Only PAT by holter monitor. No LVE, LVSD, atrial dilatation, asc aortic dilatation, CAD, carotid disease, significant TR, weight gain, orthopnea or limb edema. Admitted for elective AVR, MVrpr/replace, and closure of PFO. OTHER PAST MEDICAL HISTORY: GERD, gluten enteropathy, restless leg syndrome MEDICATIONS ON ADMISSION: Calcium carbonate 500 mg BID, Requip 2 mg hs, MVI daily, Triamterene/HCTZ 37.5/ 25 one tab daily, ASA 81 mg daily, herbal supplement daily, Natural Balance Tears 1 drop each eye q2h prn. ALLERGIES/SENSITIVITIES: NKDA CONSULTANTS: none PROCEDURES/IMAGIN/4 (Ayo): Aortic valve replacement with a 19 mm [place] Magna bovine pericardial bioprosthesis. Attempted mitral valve repair, converted to chordal sparing mitral valve replacement with a 27 mm [place] Magna bovine pericardial bioprosthesis. Primary closure of a patent foramen ovale. Prophylactic AtriClip ligation of the left atrial appendage. 11/15 (Lonnie): Transthoracic echocardiogram. ABBREVIATED HOSPITAL COURSE BY ACTIVE PROBLEM LIST: 1. Sx multi valvular insufficiency - s/p tissue AVR and MVR. Stable early postop course. Antithrombotic prophylaxis with coumadin x 3 months. INR 2-3. Management per anticoagulation clinic. 2. Chronic dCHF, class III - Preop LVEDP 18. Extubated without incident. Transient BP support with colloid and levophed. Moderate fluid overload gently diuresed. Stable renal fx. 3. Incidental PFO - Oversewn. 4. Postop PAF - Prompt conversion to SR on amio and BB. Amio stopped for nausea. Escalating BB for intermittent AF. [id number] score of 3. Antithrombotic prophylaxis with baby ASA and Coumadin as per AVR/MVR. 5. Acute expected blood loss anemia with thrombocytopenia and mild coagulopathy - Stable s/p 2u PRBC. Platelet recovery noted. H/H > 8/25 maintained. DISCHARGE CLINICAL INFORMATION: Sternum grossly stable. Sternotomy CDI, sutured, +Dermabond. HR 70s-80s, sinus. SBP 110s-120s. SpO2 83% RA rest, correcting to 94% on 1Lpm O2. Wt 6kg above admission at 62.6 kilos. Hgb 8.7, HCT 25.7, Plt 106, Na 132, K 3.9, Cr 0.5 Coumadin flow sheet: INR 2-3. Duration 3 months. Date INR mg 11/13 1.45 2.5 11/14 1.64 2.5 11/15 3.92 inadvertent 2.5 11/16 4.61 held + Vit K 2.5 mg 11/17 1.79 2 DISCHARGE MEDICATIONS: As on admission with the following adjustments: Hold Requip. Hold triamterene/HCTZ. Hold ASA prn INR > 3. NEW prescriptions: 1. Coumadin 2 mg daily or as directed by INR. 2. Metoprolol tartrate 25 mg 1.5 tabs (37.5 mg) BID 3. Lasix 40 mg daily. 4. KlorCon 20 mEq daily with lasix. 5. Ambien 10mg 1/2 to 1 tab hs prn insomnia. 6. Oxygen @ 1Lpm continuously, or as directed by SpO2. FOLLOW UP APPOINTMENTS: 1. CV surgery: with Dr Rollins at [facility] on 11/23 at 12 noon. 2. Cardiology: with Dr Hines at [facility] within 4-6 weeks. Appointment to be established during surgical visit. 3. [facility] Anticoagulation clinic in [place] on 11/19 at 2:30 pm for an INR. FOLLOW UP TESTING: CXR prior to surgical appointment.
[2016-11-18] MEDS ORDERED: POTASSIUM CL 20 MEQ TAB PO SCH (09:00)
[2016-11-18] MEDS ORDERED: FUROSEMIDE 20 MG TAB PO SCH (09:00)
== END 2016-11-17 17:34 | disposition home or self-care (01) | DRG 220 ==
LOC: F3E 07:06 → F2N 08:43 → F2W 11-12 16:20
PROVIDERS: ADMIT Thoracic Surgery (Cardiothoracic Vascular Surgery); ATTEND Thoracic Surgery (Cardiothoracic Vascular Surgery)
PROC: 02RG08Z Replacement of Mitral Valve with Zooplastic Tissue, Open Approach (ICD-10-PCS; principal; 2016-11-11 08:45)
PROC: 02L70ZK Occlusion of Left Atrial Appendage, Open Approach (ICD-10-PCS; principal; 2016-11-11 08:45)
PROC: 02Q50ZZ Repair Atrial Septum, Open Approach (ICD-10-PCS; principal; 2016-11-11 08:45)
PROC: 5A1221Z Performance of Cardiac Output, Continuous (ICD-10-PCS; principal; 2016-11-11 08:45)
PROC: 02RF08Z Replacement of Aortic Valve with Zooplastic Tissue, Open Approach (ICD-10-PCS; principal; 2016-11-11 08:45)
PROC: 30233N1 Transfusion of Nonautologous Red Blood Cells into Peripheral Vein, Percutaneous Approach (ICD-10-PCS; 2016-11-11 08:45)
DX: I35.1 Nonrheumatic aortic (valve) insufficiency (principal); I34.0 Nonrheumatic mitral (valve) insufficiency; Q21.1 Atrial septal defect; D62 Acute posthemorrhagic anemia; I48.0 Paroxysmal atrial fibrillation; I50.32 Chronic diastolic (congestive) heart failure; K21.9 Gastro-esophageal reflux disease without esophagitis
CPT/HCPCS: 82947-QW; 97110-GP; 97116-GP; 97161-GP; 97166-GO; 97530-GO; 97530-GP; 97535-GO; G8978-GP-CK; G8979-GP-CI; G8980-GP-CI; G8987-GO-CK; G8988-GO-CI; J0153; J0171; J0282; J0690; J1265; J1644; J1815; J1885; J2001; J2150; J2250; J2260; J2370; J2405; J2704; J2720; J2765; J2930; J3010; J7060; P9016; P9041

== ENCOUNTER → 2016-11-23 | Outpatient (CLI) | payer OTHER, MEDICARE | LOC: FIMAGING 10:57 | PROVIDERS: ATTEND Thoracic Surgery (Cardiothoracic Vascular Surgery) | DX: Z09 Encounter for follow-up examination after completed treatment for conditions other than malignant neoplasm (principal); J90 Pleural effusion, not elsewhere classified; J98.11 Atelectasis; Z95.4 Presence of other heart-valve replacement ==

== ENCOUNTER → 2016-11-24 | Outpatient (CLI) | payer OTHER, MEDICARE ==
[~2016-11-24] MED LIST changes: -ADENOSINE 6 MG/2 ML VIAL ONE; -ALBUMIN 5% 250 ML BOTTLE IV ONE; -AMINOCAPROIC ACID 5 GM/20 ML VIAL IV ONE; -AMINOCAPROIC ACID 5 GM/20 ML VIAL ONE; -AMIODARONE HCL 150 MG/3 ML VIAL ONE; -CALCIUM CHLORIDE 1 GM/10 ML INJ ONE; -CHLORHEXIDINE GLUC HIBICLENS 118 ML BTL TP SCH; -CITRATE DEXTROSE SOLN 500 ML BAG MISC ONE; -CITRATE DEXTROSE SOLN 500 ML BAG ONE; -DOPamine/DEXTROSE/250 ML BAG IV ONE; -HEPARIN 10,000 UNIT/10 ML MDV ONE; -INSULIN REGULAR HUMAN 100 UNIT in NS 100 ML IV ONE; +LIDO/EPI 1% **for epidural** 30 ML SDV ONE; +LIDOCAINE 1% 30 ML SDV ONE; -LIDOCAINE 1% 5 ML SDV ID PRN; -LIDOCAINE 2% 100 MG/5 ML SYR ONE; -LIDOCAINE 2% 5 ML SDV ONE; -MAGNESIUM SULFATE 1 GM/2 ML VIAL ONE; -MANNITOL 25% 12.5 GM/50 ML VIAL IV ONE; -MILRINONE/DEXTROSE/100 ML BAG IV ONE; -MUPIROCIN 2% 22 GM OINT NS ONE; -NOREPINEPHRINE BITARTRATE 16 MG in NS 250 ML IV ONE; -NS 1,000 ML IV ONE; -PHENYLEPHRINE 10 MG/ML SDV ONE; -PHENYLEPHRINE HCL 50 MG in NS 250 ML IV ONE; -POTASSIUM Cl (KCl) 20 MEQ/50 ML BAG IV ONE; -PROPOFOL 200 MG/20 ML VIAL ONE; -PROTAMINE SULFATE 50 MG/5 ML VIAL IVP ONE; -ROCURONIUM 100 MG/10 ML VIAL ONE; -SODIUM BICARBONATE 20 MEQ, LIDOCAINE 1% 10 ML in NORMOSOL-R 1,000 ML MISC ONE; -ceFAZolin 1 GM VIAL ONE; -ceFAZolin 2 GM/DEXTROSE 100 ML IV ONE; -methylPREDNISolone SOD SUCC 1 GM/8 ML VIAL ONE; -niCARdipine/NACL 200 ML IV SCH; -niCARdipine/NACL/200 ML BAG IV ONE
== END ==
LOC: FIMAGING 12:40
PROVIDERS: ATTEND Thoracic Surgery (Cardiothoracic Vascular Surgery)
PROC: 0W9B3ZZ Drainage of Left Pleural Cavity, Percutaneous Approach (ICD-10-PCS; principal; 2016-11-24)
DX: J90 Pleural effusion, not elsewhere classified (principal)

== ENCOUNTER 2016-11-30 12:57 | Day surgery (SDC) | payer OTHER, MEDICARE ==
[2016-11-30] MEDS ORDERED: PROPOFOL 200 MG/20 ML VIAL IVP ONE (13:22)
[2016-11-30] MEDS ORDERED: MIDAZOLAM 2 MG/2 ML VIAL IVP ONE (13:22)
[2016-11-30] MEDS ORDERED: NS 500 ML IV ONE (13:22)
[2016-11-30] MEDS ORDERED: fentaNYL 100 MCG/2 ML INJ IVP ONE (13:22)
[2016-11-30] MEDS ORDERED: BENZOCAINE UNIT DOSE SPRAY HURRICAINE MM ONE (13:22)
[2016-11-30 14:01] LABS: INR 3.16 (0.83-1.16); PROTIME(PATIENT) 32.9 SEC (12.0-15.0)
[2016-11-30 14:02] LABS: APTT 56.9 SEC (23.0-38.0)
[2016-11-30 14:21] LABS: ANION GAP 9 mEq/L (8-16); CALCIUM 9.3 mg/dL (8.5-10.4); CARBON DIOXIDE 24 mEq/l (22-31); CHLORIDE 102 mEq/L (97-110); CREATININE 0.6 mg/dL (0.6-1.0); GLOMERULAR FILTRATION RATE > 60; GLUCOSE 108 mg/dL (70-100); MAGNESIUM 1.9 mg/dL (1.6-2.3); POTASSIUM 3.8 mEq/L (3.5-5.2); SODIUM 135 mEq/L (134-144)
[2016-11-30] MEDS ORDERED: LIDOCAINE 2% 5 ML SDV ONE (16:32)
[2016-11-30] MEDS ORDERED: PROPOFOL 200 MG/20 ML VIAL ONE ×2 (16:32)
--- NOTE | 2016-11-30 16:54 | PDTEE1 ---
OUMOU Cardioversion Procedure Procedure: Electrical Cardioversion, Transesophageal Echo Indications: Atrial Fibrillation Consent: Signed and in Chart Anticoagulation: Warfarin Procedural Details: Pads were placed in anterior-posterior position. OUMOU probe was advanced and standard images obtained. There is no evidence of left atrial or left atrial appendage thrombus. Synchronized cardioversion attempt #1: 100J Results: Normal sinus rhythm Conclusions: Successful OUMOU Cardioversion Patient Problems: Problems Problem Status Onset Acute blood loss anemia Acute Mitral and aortic regurgitation Acute Postoperative atrial fibrillation Acute S/P aortic valve replacement with bioprosthetic valve Acute Status post mitral valve replacement with bioprosthetic valve Acute
[2016-11-30] MEDS ORDERED: ADENOSINE 6 MG/2 ML VIAL ONE (17:00)
[2016-11-30] MEDS ORDERED: ADENOSINE 6 MG/2 ML VIAL IVP ONE ×2 (17:26→17:30)
[2016-11-30] MEDS ORDERED: AMIODARONE HCL 200 MG TAB ONE (17:26)
[2016-11-30] MEDS ORDERED: AMIODARONE HCL 200 MG TAB PO ONE (17:30)
--- NOTE | 2016-12-01 11:02 | CPEKG ---
Heart Rate: 121 RR Interval: 496 P-R Interval: 156 QRSD Interval: 78 QT Interval: 350 QTC Interval: 497 P Gruver: 0 QRS Gruver: 21 T Wave Gruver: 170 EKG Severity - ABNORMAL ECG - EKG Impression: LIKELY ATRIAL TACHYCARDIA EKG Impression: DIFFUSE ST T ABNL EKG Impression: BORDERLINE PROLONGED QT INTERVAL EKG Impression: COMPARED WITH NOV 11 2016, ATRIAL TACHYCARDIA SEEN Electronically Signed By: Ju Fleming 01-Dec-2016 13:40:59
== END 2016-11-30 19:04 | disposition home or self-care (01) ==
LOC: FCATH 12:57
PROVIDERS: ATTEND Internal Medicine Cardiovascular Disease
PROC: B245ZZ4 Ultrasonography of Left Heart, Transesophageal (ICD-10-PCS; principal; 2016-11-30)
PROC: 5A2204Z Restoration of Cardiac Rhythm, Single (ICD-10-PCS; principal; 2016-11-30)
DX: I48.91 Unspecified atrial fibrillation (principal); I50.30 Unspecified diastolic (congestive) heart failure; Z95.2 Presence of prosthetic heart valve; J90 Pleural effusion, not elsewhere classified; Z79.01 Long term (current) use of anticoagulants
CPT/HCPCS: J0153; J2704

== ENCOUNTER → 2016-11-30 | Outpatient (CLI) | payer OTHER, MEDICARE | LOC: FIMAGING 08:39 | PROVIDERS: ATTEND Thoracic Surgery (Cardiothoracic Vascular Surgery) | DX: J90 Pleural effusion, not elsewhere classified (principal) ==

== ENCOUNTER → 2016-12-14 | Outpatient (CLI) | payer OTHER, MEDICARE | LOC: FIMAGING 09:31 | PROVIDERS: ATTEND Thoracic Surgery (Cardiothoracic Vascular Surgery) | DX: I31.9 Disease of pericardium, unspecified (principal); J90 Pleural effusion, not elsewhere classified; J98.11 Atelectasis ==

== ENCOUNTER → 2017-01-04 | Outpatient (CLI) | payer OTHER, MEDICARE | LOC: BHLMT 10:15 | PROVIDERS: ATTEND Internal Medicine Interventional Cardiology | DX: I34.0 Nonrheumatic mitral (valve) insufficiency (principal); I48.0 Paroxysmal atrial fibrillation; I35.1 Nonrheumatic aortic (valve) insufficiency; R42 Dizziness and giddiness | CPT/HCPCS: 93005-PO ==

== ENCOUNTER → 2017-02-03 | Outpatient (CLI) | payer OTHER, MEDICARE | LOC: BHLMT 14:45 | PROVIDERS: ATTEND Internal Medicine Cardiovascular Disease | DX: I48.91 Unspecified atrial fibrillation (principal); I35.9 Nonrheumatic aortic valve disorder, unspecified; I34.9 Nonrheumatic mitral valve disorder, unspecified | CPT/HCPCS: 93306-PO ==

== ENCOUNTER → 2017-05-26 | Outpatient (CLI) | payer OTHER, MEDICARE | LOC: BHLMT 09:00 | PROVIDERS: ATTEND Internal Medicine Cardiovascular Disease | DX: I48.0 Paroxysmal atrial fibrillation (principal); I38 Endocarditis, valve unspecified; Z95.2 Presence of prosthetic heart valve | CPT/HCPCS: 93017-PO ==

== ENCOUNTER → 2017-07-14 | Outpatient (CLI) | payer OTHER, MEDICARE | LOC: CIMAGING 11:06 | PROVIDERS: ATTEND Internal Medicine | DX: Z12.31 Encounter for screening mammogram for malignant neoplasm of breast (principal) ==

== ENCOUNTER → 2017-12-21 | Outpatient (CLI) | payer OTHER, MEDICARE | LOC: FIMAGING 16:37 | PROVIDERS: ATTEND Internal Medicine | DX: R60.9 Edema, unspecified (principal); M79.662 Pain in left lower leg ==

== ENCOUNTER → 2018-09-18 | Outpatient (CLI) | payer OTHER, MEDICARE | LOC: BHLMT 13:15 | PROVIDERS: ATTEND Internal Medicine Cardiovascular Disease | DX: R53.83 Other fatigue (principal); Z95.2 Presence of prosthetic heart valve | CPT/HCPCS: 93306-PO ==